=== PATIENT | female | born 1985 | race Caucasian/White ===

== ENCOUNTER 2020-07-30 09:17 | Emergency (ER) | payer SELFPAY ==
[~2020-07-30] VITALS: Ht 157.5 cm; Wt 61.2 kg
[2020-07-30] MEDS ORDERED: SODIUM CHLORIDE 0.9% 1000ML 1,000 ML IV STA (09:24)
[2020-07-30 10:00] LABS: BASOPHILS % 0.5 % (0.0-1.0); EOSINOPHILS # (AUTO) 0.1 (0.0-0.4); EOSINOPHILS % 1.1 % (0.0-6.0); HEMATOCRIT 35.7 % (34.2-44.1); HEMOGLOBIN 12.1 g/dL (12.0-16.0); LYMPHOCYTES # (AUTO) 1.4 (1.0-3.2); LYMPHOCYTES % 21.1 % (18.0-39.1); MEAN CORPUSCULAR HGB CONC 33.9 g/dL (31-35); MEAN CORPUSCULAR VOLUME 91.5 fL (81-99); MONOCYTES # (AUTO) 0.6 (0.2-0.8); MONOCYTES % 9.7 % (4.4-11.3); NEUTROPHILS # (AUTO) 4.4 (2.1-6.9); NEUTROPHILS % 67.4 % (38.7-80.0); PLATELET COUNT 286 x10e3/uL (140-360); RED CELL DISTRIBUTION WIDTH 12.7 % (11.7-14.4)
[2020-07-30 10:07] LABS: PHENCYCLIDINE SCREEN,URINE NEGATIVE (NEGATIVE)
[2020-07-30 10:08] LABS: AMPHETAMINES SCREEN,URINE POSITIVE (NEGATIVE); BENZODIAZEPINES SCREEN,URINE NEGATIVE (NEGATIVE)
[2020-07-30 10:46] LABS: ALANINE AMINOTRANSFERASE 14 IU/L (0-55); ALBUMIN/GLOBULIN RATIO 1.1 (0.8-2.0); ALKALINE PHOSPHATASE 67 IU/L (40-150); ANION GAP 12.9 mmol/L (8-16); BLOOD UREA NITROGEN 18 mg/dL (7-26); BUN/CREATININE RATIO 21 (6-25); CALCIUM 8.7 mg/dL (8.4-10.2); CARBON DIOXIDE 25 mmol/L (22-29); CHLORIDE 108 mmol/L (98-107); CREATINE KINASE 68 IU/L (29-168); CREATININE, SERUM 0.85 mg/dL (0.57-1.11); EST GLOMERULAR FILTRATION RATE > 60 ML/MIN (60-); GLUCOSE 75 mg/dL (74-118); POTASSIUM 3.9 mmol/L (3.5-5.1); SODIUM 142 mmol/L (136-145)
[2020-07-30 10:52] LABS: SALICYLATE < 5.0 mg/dL (0-30)
[2020-07-30] MEDS ORDERED: SODIUM CHLORIDE 0.9% 1000ML 1,000 ML IV SCH (12:15)
[2020-07-30] MEDS ORDERED: LORAZEPAM 0.5 MG TAB PO PRN (15:00)
[2020-07-30] MEDS ORDERED: NICOTINE 14 MG/EA PATCH TOP SCH (15:15)
[2020-07-30] MEDS ORDERED: ZIPRASIDONE 20 MG VIAL IM STA (16:15)
[2020-07-30] MEDS ORDERED: DIPHENHYDRAMINE HCL INJ 50 MG/ML VIAL IV ONE (16:15)
[2020-07-30 20:29] LABS: CREATINE KINASE 43 IU/L (29-168)
[2020-07-30] MEDS ORDERED: QUETIAPINE FUMARATE 25 MG TAB PO PRN (21:00)
[2020-07-31] MEDS ORDERED: ZIPRASIDONE 20 MG VIAL IM STA (09:43)
[2020-07-31] MEDS ORDERED: DIPHENHYDRAMINE HCL INJ 50 MG/ML VIAL IV ONE (09:45)
[2020-07-31] MEDS ORDERED: ZIPRASIDONE 20 MG VIAL IM ONE (12:49)
[2020-07-31] MEDS ORDERED: DIPHENHYDRAMINE HCL INJ 50 MG/ML VIAL ONE (12:49)
[2020-08-01] MEDS ORDERED: ZIPRASIDONE 20 MG VIAL IM STA (21:16)
[2020-08-01] MEDS ORDERED: ZIPRASIDONE 20 MG VIAL IM ONE (21:28)
[2020-08-01] MEDS ORDERED: DIPHENHYDRAMINE HCL INJ 50 MG/ML VIAL ONE (21:28)
[2020-08-01] MEDS ORDERED: DIPHENHYDRAMINE HCL INJ 50 MG/ML VIAL IV ONE (21:30)
[2020-08-02] MEDS ORDERED: ZIPRASIDONE 20 MG VIAL IM ONE ×2 (14:30→20:07)
[2020-08-02] MEDS ORDERED: DIPHENHYDRAMINE HCL INJ 50 MG/ML VIAL ONE ×2 (15:51→20:03)
[2020-08-02] MEDS ORDERED: DIPHENHYDRAMINE HCL INJ 50 MG/ML VIAL IM ONE ×2 (16:00→20:00)
[2020-08-02] MEDS ORDERED: ZIPRASIDONE 20 MG VIAL IM STA (19:59)
[2020-08-02] MEDS ORDERED: HALOPERIDOL LACTATE 5 MG/ML VIAL ONE (20:03)
[2020-08-03] MEDS: NICOTINE 21 MG/EA PATCH TOP SCH (20:04)
[2020-08-03] MEDS ORDERED: NICOTINE 21 MG/EA PATCH ONE (20:10)
[2020-08-03] MEDS ORDERED: ZIPRASIDONE 20 MG VIAL IM STA (23:51)
[2020-08-04] MEDS ORDERED: DIPHENHYDRAMINE HCL INJ 50 MG/ML VIAL IM ONE
[2020-08-04] MEDS ORDERED: ZIPRASIDONE 20 MG VIAL IM ONE (00:02)
[2020-08-04] MEDS ORDERED: DIPHENHYDRAMINE HCL INJ 50 MG/ML VIAL ONE (00:02)
[2020-08-04] MEDS ORDERED: KETOROLAC TROMETHAMINE 30 MG/ML VIAL IM ONE (09:15)
[2020-08-04] MEDS: NICOTINE 21 MG/EA PATCH TOP SCH (19:34)
[2020-08-05] MEDS ORDERED: ZIPRASIDONE 20 MG VIAL IM STA (00:10)
[2020-08-05] MEDS ORDERED: DIPHENHYDRAMINE HCL INJ 50 MG/ML VIAL IM ONE (00:15)
[2020-08-05] MEDS ORDERED: ZIPRASIDONE 20 MG VIAL IM ONE ×2 (00:24→20:38)
[2020-08-05] MEDS ORDERED: DIPHENHYDRAMINE HCL INJ 50 MG/ML VIAL ONE ×2 (00:25→20:39)
[2020-08-06] MEDS ORDERED: ZIPRASIDONE 20 MG VIAL IM STA ×2 (05:42→19:13)
[2020-08-06] MEDS ORDERED: DIPHENHYDRAMINE HCL INJ 50 MG/ML VIAL IV ONE (05:45)
[2020-08-06] MEDS ORDERED: DIPHENHYDRAMINE HCL INJ 50 MG/ML VIAL IM ONE ×2 (05:45→19:15)
[2020-08-06] MEDS: NICOTINE 21 MG/EA PATCH TOP SCH (19:57)
[2020-08-06] MEDS ORDERED: NICOTINE 21 MG/EA PATCH ONE (19:58)
[2020-08-07] MEDS ORDERED: ZIPRASIDONE 20 MG VIAL IM STA ×2 (10:40→21:00)
[2020-08-07] MEDS ORDERED: DIPHENHYDRAMINE HCL INJ 50 MG/ML VIAL IM ONE ×2 (10:45→21:00)
[2020-08-07] MEDS ORDERED: LORAZEPAM INJ 2 MG/ML VIAL IV ONE (11:15)
[2020-08-07] MEDS ORDERED: NICOTINE 21 MG/EA PATCH TOP SCH (21:00)
[2020-08-08] MEDS ORDERED: ZIPRASIDONE 20 MG VIAL IM STA (19:10)
[2020-08-08] MEDS ORDERED: DIPHENHYDRAMINE HCL INJ 50 MG/ML VIAL IM ONE (19:15)
[2020-08-08] MEDS ORDERED: LORAZEPAM INJ 2 MG/ML VIAL IM ONE (19:15)
== END 2020-08-09 10:00 | disposition home or self-care (01) ==
LOC: ER 09:39 → UNDOADMOB 12:10 → ERHOLD 12:10 → MED/SURG2 15:34 → ERHOLD 16:01 → ER 08-06 20:47
DX: F15.10 Other stimulant abuse, uncomplicated (principal); F23 Brief psychotic disorder; F17.210 Nicotine dependence, cigarettes, uncomplicated
CPT/HCPCS: 36415; 80053; 80307; 80320; 80329 ×2; 81025; 82550; 82553; 84484; 85025; 99283; 99285; J1200 ×7; J3486 ×7; J7030; U0002; J1630